=== PATIENT | female | born 1985 | race Caucasian/White ===

== ENCOUNTER 2017-06-13 06:30 | Day surgery (SDC) | payer BC ==
[2017-06-13] MEDS: Lactated Ringers 1,000 ML IV SCH ×4 (07:05→19:20)
[2017-06-13] MEDS ORDERED: Lidocaine 2% 5 ML SDV ONE (07:23)
[2017-06-13] MEDS ORDERED: fentaNYL 100 MCG/2 ML SDV ONE ×4 (07:23→15:03)
[2017-06-13] MEDS ORDERED: Midazolam 1 MG/ML 2 ML SDV ONE ×2 (07:23→14:14)
[2017-06-13] MEDS ORDERED: Propofol 200 MG/20 ML SDV ONE ×2 (07:23→14:12)
[2017-06-13] MEDS ORDERED: Ondansetron 4 MG/2 ML SDV ONE ×2 (07:23→14:08)
[2017-06-13] MEDS ORDERED: Lidocaine 1% with EPINEPHrine 1:100,000 20 ML MDV ONE (07:27)
[2017-06-13] MEDS ORDERED: Bupivacaine 0.25% 10 ML SDV ONE (07:27)
[2017-06-13] MEDS ORDERED: Neomycin/Polymyxin B Bladder Irrigation 1 ML Amp ONE ×2 (07:28→09:11)
[2017-06-13] MEDS ORDERED: Scopolamine 1.5 MG Transdermal Patch TRDERM PRN (07:30)
--- NOTE | 2017-06-13 07:30 | PCM.PREANE ---
Preanesthetic Assessment - Anesthesia/Transfusion/Family Hx Anesthesia History: Prior Anesthesia Without Reaction Family History of Anesthesia Reaction: Other (see below) Transfusion History: No Prior Transfusion(s) - Review of Systems General: No Symptoms Pulmonary: No Symptoms Cardiovascular: No Symptoms Gastrointestinal: No Symptoms Neurological: No Symptoms Other: Reports: None - Physical Assessment NPO Status Date: 06/12/17 NPO Status Time: 23:00 O2 Sat by Pulse Oximetry: 99 Respiratory Rate: 16 Vital Signs: Last Vital Signs Temp 36.8 C 06/13/17 06:52 Pulse 59 L 06/13/17 06:52 Resp 16 06/13/17 06:52 BP 99/60 06/13/17 06:52 Pulse Ox 99 06/13/17 06:52 Height: 1.65 m Weight: 61.689 kg ASA Class: 2 Mental Status: Alert & Oriented x3 Airway Class: Mallampati = 1 Dentition: Reports: Normal Dentition ROM/Head Extension: Full Lungs: Clear to Auscultation, Normal Respiratory Effort Cardiovascular: Regular Rate, Regular Rhythm - Lab Values: Laboratory Last Values WBC 5.06 K/uL (4.0-11.0) 06/13/17 07:02 RBC 4.26 M/uL (4.30-5.90) L 06/13/17 07:02 Hgb 13.3 g/dL (12.0-16.0) 06/13/17 07:02 Hct 37.8 % (36.0-46.0) 06/13/17 07:02 MCV 88.7 fL (80.0-98.0) 06/13/17 07:02 MCH 31.2 pg (27.0-32.0) 06/13/17 07:02 MCHC 35.2 g/dL (31.0-37.0) 06/13/17 07:02 RDW Std Deviation 42.0 fl (28.0-62.0) 06/13/17 07:02 RDW Coeff of Vicky 13 % (11.0-15.0) 06/13/17 07:02 Plt Count 216 K/uL (150-400) 06/13/17 07:02 MPV 10.30 fL (7.40-12.00) 06/13/17 07:02 Nucleated RBC % 0.0 /100WBC 06/13/17 07:02 Nucleated RBCs # 0 K/uL 06/13/17 07:02 - Allergies Allergies/Adverse Reactions: Allergies Allergy/AdvReac Type Severity Reaction Status Date / Time Iodinated Contrast- Oral and Allergy Hives Verified 06/09/17 08:52 IV Dye - Acknowledgements Anesthesia Type Planned: General Anesthesia Pt an Appropriate Candidate for the Planned Anesthesia: Yes Alternatives and Risks of Anesthesia Discussed w Pt/Guardian: Yes Pt/Guardian Understands and Agrees with Anesthesia Plan: Yes Additional Comments: hx of narcotic dependancy, used narcotics after back ingury. withdrawn from oxy with suboxone. No narcotic use now x 2 years. Will use as nuch non-narcotic analgesics as possible ( dex, iv aceta, toradol), and then supliment with narcotic until pain free. 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: , Other (See Below) Other OB/BYN History: ETOP x3 Musculoskeletal History: Reports: Back Pain, Chronic, Fracture Other Musculoskeletal History: fx spine Psychiatric History: Reports: Anxiety, Depression - Past Surgical History Head Surgeries/Procedures: Reports: None HEENT Surgical History: Reports: Tonsillectomy GI Surgical History: Reports: Appendectomy Female Surgical History: Reports: Breast Implant, Section - SUBSTANCE USE Smoking Status *Q: Former Smoker - HOME MEDS Home Medications: Home Meds Copper [Paragard T 380-A] 1 device VAG ONETIME 06/09/17 [History] Naproxen Sodium [Aleve] 2 tab PO ASDIRECTED PRN 06/09/17 [History] Spironolactone 50 mg PO DAILY 06/09/17 [History] Zolpidem [Ambien] 10 mg PO BEDTIME PRN 06/09/17 [History] - CURRENT (IN HOUSE) MEDS Current Meds: Current Medications Lactated Ringer's (Ringers, Lactated) 1,000 mls @ 125 mls/hr IV ASDIRECTED ALPA Last Admin: 06/13/17 07:05 Dose: 125 mls/hr Discontinued Medications Fentanyl (Sublimaze) Confirm Administered Dose 200 mcg .ROUTE .STK-MED ONE Stop: 06/13/17 07:24 Lidocaine (Xylocaine-Mpf 2%) Confirm Administered Dose 5 ml .ROUTE .STK-MED ONE Stop: 06/13/17 07:24 Midazolam HCl (Versed 1 Mg/Ml) Confirm Administered Dose 2 mg .ROUTE .STK-MED ONE Stop: 06/13/17 07:24 Ondansetron HCl (Zofran) Confirm Administered Dose 4 mg .ROUTE .STK-MED ONE Stop: 06/13/17 07:24 Propofol (Diprivan 20 Ml) Confirm Administered Dose 200 mg .ROUTE .STK-MED ONE Stop: 06/13/17 07:24
[2017-06-13] MEDS ORDERED: Acetaminophen 1,000 MG in Premix Bag 1 BAG IV ONE (07:31)
[2017-06-13] MEDS ORDERED: ceFAZolin 1 GM Vial ONE ×2 (08:01→14:38)
[2017-06-13] MEDS ORDERED: Sodium Chloride 0.9% 20 ML ONE (08:01)
[2017-06-13] MEDS ORDERED: Ketorolac 30 MG/ML SDV ONE (08:16)
[2017-06-13] MEDS ORDERED: ePHEDrine 50 MG/ML SDV ONE (08:19)
[2017-06-13] MEDS ORDERED: Octyl 2-Cyanoacrylate 1 Tube ONE (09:34)
[2017-06-13] MEDS ORDERED: Ketorolac 30 MG/ML SDV IVPUSH PRN (09:58)
[2017-06-13] MEDS ORDERED: Ketorolac 30 MG/ML SDV IVPUSH ONE (09:58)
[2017-06-13] MEDS ORDERED: Promethazine 25 MG/ML SDV IM PRN (09:58)
[2017-06-13] MEDS ORDERED: Ondansetron 4 MG/2 ML SDV IVPUSH PRN (09:58)
[2017-06-13] MEDS: fentaNYL 100 MCG/2 ML SDV IVPUSH PRN ×6 (10:04→15:52)
--- NOTE | 2017-06-13 10:08 | PCM.OPNOTE ---
- General Post-Op/Procedure Note Date of Surgery/Procedure: 06/13/17 Operative Procedure(s): posterior colporrhaphy, perineorrhaphy, TOVT Findings: 3rd degree Rectocele, enterocele between cervix and muscularis layer, hypermobile urethra Pre Op Diagnosis: 3rd degree rectocele, enterocele, stress incontinence Post-Op Diagnosis: Same Anesthesia Technique: General LMA Other Anesthesia Type: Local Primary Surgeon: Vonnie Guadarrama Secondary Surgeon: Eric Villalta High Scaler: Alban Ivory Pathology: Vaginal Mucosa Fluid Replacement, Intraop: 1,500 EBL in mLs: 100 Drain/Tube Comments:: Vaginal Packing Complications: None Known Condition: Good
--- NOTE | 2017-06-13 10:29 | PCM.POSTAN ---
POST ANESTHESIA ASSESSMENT - MENTAL STATUS Mental Status: Alert, Oriented - RESPIRATORY Respiratory Status: Respiratory Rate WNL, Airway Patent, O2 Saturation Stable - CARDIOVASCULAR CV Status: Pulse Rate WNL, Blood Pressure Stable - GASTROINTESTINAL GI Status: No Symptoms - POST OP HYDRATION Hydration Status: Adequate & Stable
[2017-06-13] MEDS: Acetaminophen/oxyCODONE 325-5 MG Tab PO PRN ×3 (11:20→21:50)
[2017-06-13] MEDS: Morphine 2 MG/ML Syringe IVPUSH PRN ×5 (12:05→23:38)
--- NOTE | 2017-06-13 12:20 | PCM.SN ---
- Free Text/Narrative Note: I was called due to patient saturating 3 pads. These were ice packs and so quantity was difficult to determine. At my direction the nursing staff has added an additional roll of packing and at this time, there is no active vaginal bleeding, pain is controlled after dose of Fentanyl vitals are stable. Will check H&H at 4 pm, hold ketorolac and nurses will notify me of further bleeding.
[2017-06-13] MEDS ORDERED: Succinylcholine/Normal Saline 200 MG/10 ML Syringe ONE (14:08)
[2017-06-13] MEDS ORDERED: Metoclopramide 10 MG/2 ML SDV ONE (14:08)
--- NOTE | 2017-06-13 14:10 | PCM.SURGPN ---
- General Info Date of Service: 06/13/17 POD#: 0 Functional Status: Reports: Pain Controlled (rates pain 5-6, vaginal. ) - Review of Systems HEENT: Reports: No Symptoms Gastrointestinal: Reports: No Symptoms Genitourinary: Reports: Other (nursing staff called, pad again saturated, 160 ml ) - Patient Data Vitals - Most Recent: Last Vital Signs Temp 37.1 C 06/13/17 10:53 Pulse 80 06/13/17 10:53 Resp 16 06/13/17 10:53 BP 118/77 06/13/17 10:53 Pulse Ox 100 06/13/17 10:53 Weight - Most Recent: 61.689 kg I&O - Last 24 Hours: Intake & Output 06/12/17 06/13/17 06/13/17 22:59 06:59 14:59 Intake Total 3350 Balance 3350 Lab Results Last 24 Hrs: Laboratory Results - last 24 hr 06/13/17 06/13/17 06/13/17 Range/Units 07:02 07:02 07:02 WBC 5.06 (4.0-11.0) K/uL RBC 4.26 L (4.30-5.90) M/uL Hgb 13.3 (12.0-16.0) g/dL Hct 37.8 (36.0-46.0) % MCV 88.7 (80.0-98.0) fL MCH 31.2 (27.0-32.0) pg MCHC 35.2 (31.0-37.0) g/dL RDW Std Deviation 42.0 (28.0-62.0) fl RDW Coeff of Vicky 13 (11.0-15.0) % Plt Count 216 (150-400) K/uL MPV 10.30 (7.40-12.00) fL Nucleated RBC % 0.0 /100WBC Nucleated RBCs # 0 K/uL Potassium 4.0 (3.5-5.1) mmol/L HCG, Qual NEGATIVE (NEG) Med Orders - Current: Current Medications Fentanyl (Sublimaze) 50 mcg IVPUSH Q5M PRN PRN Reason: Pain (severe 7-10) Stop: 06/14/17 08:17 Last Admin: 06/13/17 10:26 Dose: 50 mcg Lactated Ringer's (Ringers, Lactated) 1,000 mls @ 125 mls/hr IV ASDIRECTED ALPA Last Admin: 06/13/17 11:27 Dose: 125 mls/hr Morphine Sulfate (Morphine) 2 mg IVPUSH Q2H PRN PRN Reason: Pain (severe 7-10) Last Admin: 06/13/17 12:05 Dose: 2 mg Ondansetron HCl (Zofran) 4 mg IVPUSH Q6H PRN PRN Reason: Nausea/Vomiting Last Admin: 06/13/17 12:48 Dose: 4 mg Oxycodone/Acetaminophen (Percocet 325-5 Mg) 1 tab PO Q4H PRN PRN Reason: Pain (moderate 4-6) Last Admin: 06/13/17 11:20 Dose: 1 tab Promethazine HCl (Phenergan) 25 mg IM Q6H PRN PRN Reason: Nausea/Vomiting Scopolamine (Transderm-Scop) 1.5 mg TRDERM Q72H PRN PRN Reason: Nausea/Vomiting Last Admin: 06/13/17 07:40 Dose: 1.5 mg Discontinued Medications Bupivacaine HCl (Sensorcaine-Mpf 0.25%) Confirm Administered Dose 10 ml .ROUTE .STK-MED ONE Stop: 06/13/17 07:28 Cefazolin Sodium (Ancef) Confirm Administered Dose 1 gm .ROUTE .STK-MED ONE Stop: 06/13/17 08:02 Ephedrine Sulfate (Ephedrine Sulfate) Confirm Administered Dose 50 mg .ROUTE .STK-MED ONE Stop: 06/13/17 08:20 Fentanyl (Sublimaze) Confirm Administered Dose 200 mcg .ROUTE .STK-MED ONE Stop: 06/13/17 07:24 Fentanyl (Sublimaze) Confirm Administered Dose 100 mcg .ROUTE .STK-MED ONE Stop: 06/13/17 08:54 Acetaminophen 1,000 mg/ Premix 100 mls @ 400 mls/hr IV NOW ONE Stop: 06/13/17 07:45 Last Admin: 06/13/17 07:40 Dose: 400 mls/hr Sodium Chloride (Normal Saline) Confirm Administered Dose 20 mls @ as directed .ROUTE .STK-MED ONE Stop: 06/13/17 08:02 Ketorolac Tromethamine (Toradol) Confirm Administered Dose 30 mg .ROUTE .STK- MED ONE Stop: 06/13/17 08:17 Ketorolac Tromethamine (Toradol) 30 mg IVPUSH ONETIME ONE Stop: 06/13/17 09:59 Last Admin: 06/13/17 13:23 Dose: Not Given Ketorolac Tromethamine (Toradol) 30 mg IVPUSH Q6H PRN PRN Reason: Pain (severe 7-10) Stop: 06/18/17 09:59 Lidocaine (Xylocaine-Mpf 2%) Confirm Administered Dose 5 ml .ROUTE .STK-MED ONE Stop: 06/13/17 07:24 Lidocaine/Epinephrine (Xylocaine 1% With Epinephrine 1:100,000) Confirm Administered Dose 20 ml .ROUTE .STK-MED ONE Stop: 06/13/17 07:28 Midazolam HCl (Versed 1 Mg/Ml) Confirm Administered Dose 2 mg .ROUTE .STK-MED ONE Stop: 06/13/17 07:24 Neomycin/Polymyxin (Neosporin Gu Irrigant) Confirm Administered Dose 1 ml .ROUTE .STK-MED ONE Stop: 06/13/17 07:29 Neomycin/Polymyxin (Neosporin Gu Irrigant) Confirm Administered Dose 1 ml .ROUTE .STK-MED ONE Stop: 06/13/17 09:12 Octyl Cyanoacrylate (Dermabond Advance) Confirm Administered Dose 1 applic .ROUTE .STK-MED ONE Stop: 06/13/17 09:35 Ondansetron HCl (Zofran) Confirm Administered Dose 4 mg .ROUTE .STK-MED ONE Stop: 06/13/17 07:24 Propofol (Diprivan 20 Ml) Confirm Administered Dose 200 mg .ROUTE .STK-MED ONE Stop: 06/13/17 07:24 - Exam General: Alert, Oriented Physical Findings Comment:: Due to discomfort, I feel that an appropriate exam will require anesthesia, packing will be removed and bleeding assessed. - Problem List & Annotations (1) Rectocele SNOMED Code(s): 929772549 Code(s): N81.6 - RECTOCELE Status: Acute Current Visit: Yes - Problem List Review Problem List Initiated/Reviewed/Updated: Yes - My Orders Last 24 Hours: Active Orders 24 hr Category Date Time Status Patient Status [ADT] Routine ADT 06/13/17 09:59 Active Antiembolic Devices [RC] PER UNIT ROUTINE Care 06/13/17 10:00 Active Notify Provider Intake and Out [RC] ASDIRECTED Care 06/13/17 09:59 Active Notify Provider Vital Signs [RC] ASDIRECTED Care 06/13/17 09:59 Active Oxygen Therapy [RC] ASDIRECTED Care 06/13/17 09:59 Active RT Incentive Spirometry [RC] Q2HWA Care 06/13/17 09:59 Active Up With Assistance [RC] PER UNIT ROUTINE Care 06/13/17 09:59 Active Up ad Mirella [RC] PER UNIT ROUTINE Care 06/13/17 09:59 Active Urinary Catheter Removal [RC] Per Unit Routine Care 06/13/17 09:59 Active Vital Signs [RC] PER UNIT ROUTINE Care 06/13/17 09:59 Active Regular Diet [DIET] Diet 06/13/17 Lunch Active HEMOGLOBIN/HEMATOCRIT,HH [HEME] Routine Lab 06/13/17 14:01 Ordered HEMOGLOBIN/HEMATOCRIT,HH [HEME] Routine Lab 06/13/17 16:00 Ordered TYPE AND SCREEN [BBK] Routine Lab 06/13/17 14:01 Ordered Acetaminophen/oxyCODONE [Percocet 325-5 MG] Med 06/13/17 09:58 Active 1 tab PO Q4H PRN Lactated Ringers [Ringers, Lactated] 1,000 ml Med 06/13/17 06:30 Active IV ASDIRECTED Morphine Med 06/13/17 09:58 Active 2 mg IVPUSH Q2H PRN Ondansetron [Zofran] Med 06/13/17 09:58 Active 4 mg IVPUSH Q6H PRN Promethazine [Phenergan] Med 06/13/17 09:58 Active 25 mg IM Q6H PRN Scopolamine [Transderm-Scop] Med 06/13/17 07:30 Active 1.5 mg TRDERM Q72H PRN fentaNYL [Sublimaze] Med 06/13/17 08:13 Active 50 mcg IVPUSH Q5M PRN Pad Count [Peripad Count] [WOMSER] Routine Oth 06/13/17 12:22 Ordered Peripheral IV Discontinue [OM.PC] Routine Oth 06/13/17 09:59 Ordered Sequential Compression Device [OM.PC] Per Unit Routine Oth 06/13/17 09:59 Ordered Resuscitation Status Routine Resus Stat 06/13/17 09:58 Ordered Medication Orders Fentanyl (Sublimaze) 50 mcg IVPUSH Q5M PRN PRN Reason: Pain (severe 7-10) Stop: 06/14/17 08:17 Last Admin: 06/13/17 10:26 Dose: 50 mcg Admin: 06/13/17 10:19 Dose: 50 mcg Admin: 06/13/17 10:10 Dose: 50 mcg Admin: 06/13/17 10:04 Dose: 50 mcg Lactated Ringer's (Ringers, Lactated) 1,000 mls @ 125 mls/hr IV ASDIRECTED [facility] Last Admin: 06/13/17 11:27 Dose: 125 mls/hr Infusion: 06/13/17 11:27 Dose: 125 mls/hr Admin: 06/13/17 07:05 Dose: 125 mls/hr Morphine Sulfate (Morphine) 2 mg IVPUSH Q2H PRN PRN Reason: Pain (severe 7-10) Last Admin: 06/13/17 12:05 Dose: 2 mg Ondansetron HCl (Zofran) 4 mg IVPUSH Q6H PRN PRN Reason: Nausea/Vomiting Last Admin: 06/13/17 12:48 Dose: 4 mg Oxycodone/Acetaminophen (Percocet 325-5 Mg) 1 tab PO Q4H PRN PRN Reason: Pain (moderate 4-6) Last Admin: 06/13/17 11:20 Dose: 1 tab Promethazine HCl (Phenergan) 25 mg IM Q6H PRN PRN Reason: Nausea/Vomiting Scopolamine (Transderm-Scop) 1.5 mg TRDERM Q72H PRN PRN Reason: Nausea/Vomiting Last Admin: 06/13/17 07:40 Dose: 1.5 mg - Assessment Assessment (Free Text/Narrative):: POD0 after rectocele repair and TOVT, has saturated 3 pads, needs appropriate exam and confirmation of hemostasis, this is best accomplished in the OR with appropriate equipment and pain control. Patient understands and agrees. Will get H&H and type and screen.
--- NOTE | 2017-06-13 15:28 | OR ---
SURGEON: Vonnie Guadarrama M.D. DATE OF PROCEDURE: 06/13/2017 PREOPERATIVE DIAGNOSES: Stress urinary incontinence and symptomatic rectocele. BRIEF HISTORY: This is a 32-year-old female. She has documented stress incontinence. Cystometry showed normal bladder capacity. No significant bladder contractions. She was thoroughly counseled regarding options for stress incontinence including expectant management, pessaries, or surgical intervention, which could include a retropubic transobturator or a single-incision sling. She would like to proceed with a transobturator sling. She was thoroughly counseled and given written information regarding the transobturator sling including risk of urinary retention, voiding dysfunction, bleeding, infection, erosion, pain, injury to nerves, urethra, bladder or ureter, possibly requiring short-term catheterization, possibility of dyspareunia. Understanding these risks, she does desire to proceed with transobturator vaginal taping. Additionally, she has a symptomatic third-degree rectocele with difficulty passing stools requiring splinting. She has pelvic pressure and difficulty having intercourse. She would also like to have a perineorrhaphy at her request at the same time as the repair of the rectocele. She has a somewhat gaping perineum, but not severely so. She was thoroughly counseled including with the rectocele repair, risk of bleeding, infection, injury to bowel or sphincter, risk of dyspareunia, risk of recurrence. She was clearly counseled that the posterior perineorrhaphy may increase her risk of dyspareunia. She also understands that under no circumstance should she attempt a vaginal delivery. If she were to become again, she would require a . She clearly understands this and does desire to proceed and agrees with the plan of care. DESCRIPTION OF PROCEDURE: With the patient in dorsal lithotomy position, under adequate general LMA analgesia, the perineum and vagina were prepped with Zephiran due to a Betadine allergy. Appropriate time-out was held. Bimanual examination revealed a third- degree rectocele, mobile uterus, hypermobile urethra. After appropriate time- out was held with SCDs in place having received 1 g of Ancef IV and with the bladder having been drained, Allis clamps were placed at the 5 and 7 o'clock position of the perineum. Triangular incision was made into the perineum. The skin was removed. The hydrodissection was performed posteriorly. The posterior vaginal mucosa was incised with Metzenbaum scissors in the midline. The muscularis layer was dissected free of the overlying epithelial layer. There were an enterocele between the cervix and the muscularis layer. This was reduced and in a pursestring fashion the muscularis layer and the pericervical fascia were reattached and a 2nd pursestring layer was placed. The remaining muscularis layer was reapproximated using multiple interrupted mattress sutures of 2-0 Polysorb. The vaginal mucosa was trimmed and closed with a running locked suture of 0 Polysorb to the perineum where the deep perineal sutures were placed. Following this, the skin was reapproximated using 3-0 plain. With this being completed, the weighted speculum was placed posteriorly and the bladder was again drained. The landmarks were marked at the notch at the level of the clitoris laterally inferior to the adductor longus muscle. A 1% lidocaine with epinephrine diluted 1:1 with Marcaine 0.25%, diluted 1:1 with saline was injected beneath the urethra laterally towards the obturator foramen in the subcutaneous area at the site of the markings. A #11 blade scalpel was used to make incisions at the groin markings and a #15 blade scalpel was utilized to incise starting 1 cm cephalad from the urethral meatus through the vaginal epithelium. Metzenbaum scissors were then used to dissect laterally towards the pubic ramus on the right and the left. The transobturator needle was then passed through the skin incision turning medially through the obturator foramen meeting my finger, which had been placed through the vaginal incision and bringing the tip to the suburethral area. The tape was then attached and pulled through cut and tagged. This was repeated on the opposite side without any difficulty. The tape was positioned appropriately vaginally. The bladder was filled with antibiotic solution and the tape was instilled with antibiotic solution as well. The tape was appropriately positioned. The sheath of the tape was removed. Test of Crede maneuver was performed and there was no leakage. The catheter was easily passed through the urethral meatus without any resistance. Therefore, the tails of the tape were trimmed. The skin was closed with skin glue. The vaginal mucosa was closed with a running locked suture of 3- 0 Polysorb. The vagina was packed. The catheter was left in place and final sponge, needle, and instrument counts were reported as correct. There were no known complications. The patient was transferred to recovery in good condition. ROME MONTOYA /[id number]
--- NOTE | 2017-06-13 15:34 | PCM.OPNOTE ---
- General Post-Op/Procedure Note Date of Surgery/Procedure: 06/13/17 Operative Procedure(s): Evacuation of hematoma and establishment of hemostasis Findings: Left posterior vaginal hematoma Pre Op Diagnosis: Postop bleeding Post-Op Diagnosis: same Anesthesia Technique: General LMA Primary Surgeon: Vonnie Guadarrama Plate Preparer: Alban Ivory Fluid Replacement, Intraop: 1,350 EBL in mLs: 50 Drain/Tube Comments:: Vaginal packing Complications: None Known Condition: Good Free Text/Narrative:: Intake & Output 06/13/17 06/13/17 06/13/17 06:59 14:59 22:59 Intake Total 3350 1000 Output Total 225 Balance 3350 775
--- NOTE | 2017-06-13 16:04 | PCM.POSTAN ---
POST ANESTHESIA ASSESSMENT - MENTAL STATUS Mental Status: Alert, Oriented - VITAL SIGNS Pulse Rate: 80 SaO2: 99 Resp Rate: 20 Blood Pressure: 109/62 Temperature: 37 C - RESPIRATORY Respiratory Status: Respiratory Rate WNL, Airway Patent, O2 Saturation Stable - CARDIOVASCULAR CV Status: Pulse Rate WNL, Blood Pressure Stable - GASTROINTESTINAL GI Status: No Symptoms - PAIN Pain Score: 3 - POST OP HYDRATION Hydration Status: Adequate & Stable - OBSERVATIONS Free Text/Narrative:: Doing well, some discomfort, fentanyl x 2. Will discharge in good condition
[2017-06-13] MEDS: ceFAZolin 2 GM in Premix Bag 1 BAG IV SCH (20:15)
--- NOTE | 2017-06-13 21:49 | OR ---
SURGEON: Vonnie Guadarrama M.D. DATE OF PROCEDURE: 06/13/2017 PREOPERATIVE DIAGNOSIS: Vaginal bleeding after rectocele repair. POSTOPERATIVE DIAGNOSIS: Vaginal bleeding after rectocele repair. PROCEDURE: Evacuation of hematoma, establishment of hemostasis. MASK FORMER: Alban Ivory MS-3. ANESTHESIA: General endotracheal. ESTIMATED BLOOD LOSS: 50 mL. FINDINGS: There was a 3 cm hematoma to the left of the apex of the vaginal incision. The hematoma was evacuated. There was minimal active bleeding. There was no discrete area of bleeding. Any areas of bleeding that were noted were controlled with [id number] sutures of 2-0 Polysorb, two of which were placed. The previous incision at the beginning of the case had been opened for complete visualization of the muscularis layer. Once the sutures have been removed, the edges were retracted with Allis clamps and careful inspection was performed over the entire muscularis layer, but particularly paying attention to the left apical portion. Again, 2 [id number] sutures were placed. This accomplished hemostasis. The muscularis layer was then reapproximated using a running lock suture of 2-0 Polysorb to the introitus. This was then taken out onto the perineum, the deep perineal tissue was reapproximated with the same suture and tied the 3-0 plain was then utilized to reapproximate the more superficial perineal tissue and subcutaneous tissue. The vagina was then again inspected, it appeared completely hemostatic and 2 rolls of vaginal packing instilled with K-Y jelly were utilized for vaginal packing. Final sponge, needle, and instrument counts were reported as correct. There were no complications of this procedure, however, complication in general would be vaginal hematoma from prior procedure. DISPOSITION: Stable to recovery. ROME / LINDSAY /[id number]
[2017-06-14] MEDS: Acetaminophen/oxyCODONE 325-5 MG Tab PO PRN ×4 (01:56→15:13)
[2017-06-14] MEDS: ceFAZolin 2 GM in Premix Bag 1 BAG IV SCH ×3 (01:57→14:14)
[2017-06-14] MEDS: Morphine 2 MG/ML Syringe IVPUSH PRN ×3 (02:15→06:48)
--- NOTE | 2017-06-14 08:01 | PCM.PN ---
- General Info Date of Service: 06/14/17 Admission Dx/Problem (Free Text): Postop perineorraphy, colporraphy, TOVT - Patient Data Vitals - Most Recent: Last Vital Signs Temp 37.2 C 06/14/17 06:59 Pulse 76 06/14/17 04:20 Resp 14 06/14/17 04:20 BP 93/51 L 06/14/17 04:20 Pulse Ox 98 06/14/17 04:20 Weight - Most Recent: 61.689 kg I&O - Last 24 Hours: Intake & Output 06/13/17 06/14/17 06/14/17 22:59 06:59 14:59 Intake Total 4000 1000 Output Total 3325 1675 Balance 675 -675 Lab Results Last 24 Hours: Laboratory Results - last 24 hr 06/13/17 06/13/17 06/13/17 Range/Units 14:13 14:13 17:42 WBC (4.0-11.0) K/uL RBC (4.30-5.90) M/uL Hgb 10.9 L (12.0-16.0) g/dL Hct 31.7 L (36.0-46.0) % MCV (80.0-98.0) fL MCH (27.0-32.0) pg MCHC (31.0-37.0) g/dL RDW Std Deviation (28.0-62.0) fl RDW Coeff of Vicky (11.0-15.0) % Plt Count (150-400) K/uL MPV (7.40-12.00) fL Nucleated RBC % /100WBC Nucleated RBCs # K/uL INR 1.10 (0.86-1.11) Blood Type O NEGATIVE Antibody Screen NEGATIVE 06/13/17 06/14/17 Range/Units 17:42 04:26 WBC 11.96 H 9.80 (4.0-11.0) K/uL RBC 3.42 L 3.47 L (4.30-5.90) M/uL Hgb 10.6 L 10.7 L (12.0-16.0) g/dL Hct 30.7 L 31.5 L (36.0-46.0) % MCV 89.8 90.8 (80.0-98.0) fL MCH 31.0 30.8 (27.0-32.0) pg MCHC 34.5 34.0 (31.0-37.0) g/dL RDW Std Deviation 42.8 43.9 (28.0-62.0) fl RDW Coeff of Vicky 13 13 (11.0-15.0) % Plt Count 200 201 (150-400) K/uL MPV 10.10 10.40 (7.40-12.00) fL Nucleated RBC % 0.0 0.0 /100WBC Nucleated RBCs # 0 0 K/uL INR (0.86-1.11) Blood Type Antibody Screen Med Orders - Current: Current Medications Fentanyl (Sublimaze) 50 mcg IVPUSH Q5M PRN PRN Reason: Pain (severe 7-10) Stop: 06/14/17 08:17 Last Admin: 06/13/17 10:26 Dose: 50 mcg Lactated Ringer's (Ringers, Lactated) 1,000 mls @ 125 mls/hr IV ASDIRECTED [facility] Last Admin: 06/13/17 19:20 Dose: 125 mls/hr Cefazolin Sodium/Dextrose 2 gm (/ Premix) 50 mls @ 100 mls/hr IV Q6H [facility] Stop: 06/14/17 20:00 Last Admin: 06/14/17 01:57 Dose: 100 mls/hr Morphine Sulfate (Morphine) 2 mg IVPUSH Q2H PRN PRN Reason: Pain (severe 7-10) Last Admin: 06/14/17 06:48 Dose: 2 mg Ondansetron HCl (Zofran) 4 mg IVPUSH Q6H PRN PRN Reason: Nausea/Vomiting Last Admin: 06/13/17 12:48 Dose: 4 mg Oxycodone/Acetaminophen (Percocet 325-5 Mg) 1 tab PO Q4H PRN PRN Reason: Pain (moderate 4-6) Last Admin: 06/13/17 17:43 Dose: 1 tab Oxycodone/Acetaminophen (Percocet 325-5 Mg) 2 tab PO Q4H PRN PRN Reason: Pain (moderate 4-6) Last Admin: 06/14/17 06:49 Dose: 2 tab Promethazine HCl (Phenergan) 25 mg IM Q6H PRN PRN Reason: Nausea/Vomiting Scopolamine (Transderm-Scop) 1.5 mg TRDERM Q72H PRN PRN Reason: Nausea/Vomiting Last Admin: 06/13/17 07:40 Dose: 1.5 mg Zaleplon (Sonata) 10 mg PO BEDTIME PRN PRN Reason: Insomnia Last Admin: 06/13/17 23:09 Dose: 10 mg Discontinued Medications Bupivacaine HCl (Sensorcaine-Mpf 0.25%) Confirm Administered Dose 10 ml .ROUTE .STK-MED ONE Stop: 06/13/17 07:28 Cefazolin Sodium (Ancef) Confirm Administered Dose 1 gm .ROUTE .STK-MED ONE Stop: 06/13/17 08:02 Cefazolin Sodium (Ancef) Confirm Administered Dose 1 gm .ROUTE .STK-MED ONE Stop: 06/13/17 14:39 Ephedrine Sulfate (Ephedrine Sulfate) Confirm Administered Dose 50 mg .ROUTE .STK-MED ONE Stop: 06/13/17 08:20 Fentanyl (Sublimaze) Confirm Administered Dose 200 mcg .ROUTE .STK-MED ONE Stop: 06/13/17 07:24 Fentanyl (Sublimaze) Confirm Administered Dose 100 mcg .ROUTE .STK-MED ONE Stop: 06/13/17 08:54 Fentanyl (Sublimaze) Confirm Administered Dose 100 mcg .ROUTE .STK-MED ONE Stop: 06/13/17 14:14 Fentanyl (Sublimaze) Confirm Administered Dose 100 mcg .ROUTE .STK-MED ONE Stop: 06/13/17 15:04 Fentanyl (Sublimaze) 50 mcg IVPUSH Q5M PRN PRN Reason: Pain Last Admin: 06/13/17 15:52 Dose: 50 mcg Glycopyrrolate () Confirm Administered Dose 1 mg .ROUTE .STK-MED ONE Stop: 06/13/17 14:09 Acetaminophen 1,000 mg/ Premix 100 mls @ 400 mls/hr IV NOW ONE Stop: 06/13/17 07:45 Last Admin: 06/13/17 07:40 Dose: 400 mls/hr Sodium Chloride (Normal Saline) Confirm Administered Dose 20 mls @ as directed .ROUTE .STK-MED ONE Stop: 06/13/17 08:02 Ketorolac Tromethamine (Toradol) Confirm Administered Dose 30 mg .ROUTE .STK- MED ONE Stop: 06/13/17 08:17 Ketorolac Tromethamine (Toradol) 30 mg IVPUSH ONETIME ONE Stop: 06/13/17 09:59 Last Admin: 06/13/17 13:23 Dose: Not Given Ketorolac Tromethamine (Toradol) 30 mg IVPUSH Q6H PRN PRN Reason: Pain (severe 7-10) Stop: 06/18/17 09:59 Lidocaine (Xylocaine-Mpf 2%) Confirm Administered Dose 5 ml .ROUTE .STK-MED ONE Stop: 06/13/17 07:24 Lidocaine HCl (Xylocaine-Mpf 1%) Confirm Administered Dose 5 ml .ROUTE .STK-MED ONE Stop: 06/13/17 15:18 Lidocaine/Epinephrine (Xylocaine 1% With Epinephrine 1:100,000) Confirm Administered Dose 20 ml .ROUTE .STK-MED ONE Stop: 06/13/17 07:28 Metoclopramide HCl (Reglan) Confirm Administered Dose 10 mg .ROUTE .STK-MED ONE Stop: 06/13/17 14:09 Midazolam HCl (Versed 1 Mg/Ml) Confirm Administered Dose 2 mg .ROUTE .STK-MED ONE Stop: 06/13/17 07:24 Midazolam HCl (Versed 1 Mg/Ml) Confirm Administered Dose 2 mg .ROUTE .STK-MED ONE Stop: 06/13/17 14:15 Neomycin/Polymyxin (Neosporin Gu Irrigant) Confirm Administered Dose 1 ml .ROUTE .STK-MED ONE Stop: 06/13/17 07:29 Neomycin/Polymyxin (Neosporin Gu Irrigant) Confirm Administered Dose 1 ml .ROUTE .STK-MED ONE Stop: 06/13/17 09:12 Octyl Cyanoacrylate (Dermabond Advance) Confirm Administered Dose 1 applic .ROUTE .STK-MED ONE Stop: 06/13/17 09:35 Ondansetron HCl (Zofran) Confirm Administered Dose 4 mg .ROUTE .STK-MED ONE Stop: 06/13/17 07:24 Ondansetron HCl (Zofran) Confirm Administered Dose 4 mg .ROUTE .STK-MED ONE Stop: 06/13/17 14:09 Propofol (Diprivan 20 Ml) Confirm Administered Dose 200 mg .ROUTE .STK-MED ONE Stop: 09/19/17 07:24 Propofol (Diprivan 20 Ml) Confirm Administered Dose 400 mg .ROUTE .STK-MED ONE Stop: 06/13/17 14:13 Succinylcholine Chloride (Succinylcholine In Ns Pf) Confirm Administered Dose 200 mg .ROUTE .STK-MED ONE Stop: 06/13/17 14:09
--- NOTE | 2017-06-14 08:12 | PCM.PN ---
- General Info Date of Service: 06/14/17 Functional Status: Reports: Tolerating Diet, Ambulating, Urinating. Denies: Pain Controlled (has been using morphine and Percocet through the night, she now has improved pain control. Reviewed history of high dose narcotic use in the past, making narcotics less effective for her. ) - Review of Systems General: Reports: Fever (one temp over 38.0) HEENT: Reports: No Symptoms Pulmonary: Reports: No Symptoms Cardiovascular: Reports: No Symptoms Gastrointestinal: Reports: No Symptoms Genitourinary: Reports: No Symptoms Musculoskeletal: Reports: No Symptoms Skin: Reports: No Symptoms Neurological: Reports: No Symptoms Psychiatric: Reports: No Symptoms - Patient Data Vitals - Most Recent: Last Vital Signs Temp 37.2 C 06/14/17 06:59 Pulse 76 06/14/17 04:20 Resp 14 06/14/17 04:20 BP 93/51 L 06/14/17 04:20 Pulse Ox 98 06/14/17 04:20 Weight - Most Recent: 61.689 kg I&O - Last 24 Hours: Intake & Output 06/13/17 06/14/17 06/14/17 22:59 06:59 14:59 Intake Total 4000 1000 Output Total 3325 1675 Balance 675 -675 Lab Results Last 24 Hours: Laboratory Results - last 24 hr 06/13/17 06/13/17 06/13/17 Range/Units 14:13 14:13 17:42 WBC (4.0-11.0) K/uL RBC (4.30-5.90) M/uL Hgb 10.9 L (12.0-16.0) g/dL Hct 31.7 L (36.0-46.0) % MCV (80.0-98.0) fL MCH (27.0-32.0) pg MCHC (31.0-37.0) g/dL RDW Std Deviation (28.0-62.0) fl RDW Coeff of Vicky (11.0-15.0) % Plt Count (150-400) K/uL MPV (7.40-12.00) fL Nucleated RBC % /100WBC Nucleated RBCs # K/uL INR 1.10 (0.86-1.11) Blood Type O NEGATIVE Antibody Screen NEGATIVE 06/13/17 06/14/17 Range/Units 17:42 04:26 WBC 11.96 H 9.80 (4.0-11.0) K/uL RBC 3.42 L 3.47 L (4.30-5.90) M/uL Hgb 10.6 L 10.7 L (12.0-16.0) g/dL Hct 30.7 L 31.5 L (36.0-46.0) % MCV 89.8 90.8 (80.0-98.0) fL MCH 31.0 30.8 (27.0-32.0) pg MCHC 34.5 34.0 (31.0-37.0) g/dL RDW Std Deviation 42.8 43.9 (28.0-62.0) fl RDW Coeff of Vicky 13 13 (11.0-15.0) % Plt Count 200 201 (150-400) K/uL MPV 10.10 10.40 (7.40-12.00) fL Nucleated RBC % 0.0 0.0 /100WBC Nucleated RBCs # 0 0 K/uL INR (0.86-1.11) Blood Type Antibody Screen Med Orders - Current: Current Medications Fentanyl (Sublimaze) 50 mcg IVPUSH Q5M PRN PRN Reason: Pain (severe 7-10) Stop: 06/14/17 08:17 Last Admin: 06/13/17 10:26 Dose: 50 mcg Lactated Ringer's (Ringers, Lactated) 1,000 mls @ 125 mls/hr IV ASDIRECTED [facility] Last Admin: 06/13/17 19:20 Dose: 125 mls/hr Cefazolin Sodium/Dextrose 2 gm (/ Premix) 50 mls @ 100 mls/hr IV Q6H [facility] Stop: 06/14/17 20:00 Last Admin: 06/14/17 01:57 Dose: 100 mls/hr Ketorolac Tromethamine (Toradol) 30 mg IVPUSH Q6H [facility] Stop: 06/19/17 08:05 Oxycodone/Acetaminophen (Percocet 325-5 Mg) 2 tab PO Q4H PRN PRN Reason: Pain (moderate 4-6) Last Admin: 06/14/17 06:49 Dose: 2 tab Scopolamine (Transderm-Scop) 1.5 mg TRDERM Q72H PRN PRN Reason: Nausea/Vomiting Last Admin: 06/13/17 07:40 Dose: 1.5 mg Zaleplon (Sonata) 10 mg PO BEDTIME PRN PRN Reason: Insomnia Last Admin: 06/13/17 23:09 Dose: 10 mg Discontinued Medications Bupivacaine HCl (Sensorcaine-Mpf 0.25%) Confirm Administered Dose 10 ml .ROUTE .STK-MED ONE Stop: 06/13/17 07:28 Cefazolin Sodium (Ancef) Confirm Administered Dose 1 gm .ROUTE .STK-MED ONE Stop: 06/13/17 08:02 Cefazolin Sodium (Ancef) Confirm Administered Dose 1 gm .ROUTE .STK-MED ONE Stop: 06/13/17 14:39 Ephedrine Sulfate (Ephedrine Sulfate) Confirm Administered Dose 50 mg .ROUTE .STK-MED ONE Stop: 06/13/17 08:20 Fentanyl (Sublimaze) Confirm Administered Dose 200 mcg .ROUTE .STK-MED ONE Stop: 06/13/17 07:24 Fentanyl (Sublimaze) Confirm Administered Dose 100 mcg .ROUTE .STK-MED ONE Stop: 06/13/17 08:54 Fentanyl (Sublimaze) Confirm Administered Dose 100 mcg .ROUTE .STK-MED ONE Stop: 06/13/17 14:14 Fentanyl (Sublimaze) Confirm Administered Dose 100 mcg .ROUTE .STK-MED ONE Stop: 06/13/17 15:04 Fentanyl (Sublimaze) 50 mcg IVPUSH Q5M PRN PRN Reason: Pain Last Admin: 06/13/17 15:52 Dose: 50 mcg Glycopyrrolate () Confirm Administered Dose 1 mg .ROUTE .STK-MED ONE Stop: 06/13/17 14:09 Acetaminophen 1,000 mg/ Premix 100 mls @ 400 mls/hr IV NOW ONE Stop: 06/13/17 07:45 Last Admin: 06/13/17 07:40 Dose: 400 mls/hr Sodium Chloride (Normal Saline) Confirm Administered Dose 20 mls @ as directed .ROUTE .STK-MED ONE Stop: 06/13/17 08:02 Ketorolac Tromethamine (Toradol) Confirm Administered Dose 30 mg .ROUTE .STK- MED ONE Stop: 06/13/17 08:17 Ketorolac Tromethamine (Toradol) 30 mg IVPUSH ONETIME ONE Stop: 06/13/17 09:59 Last Admin: 06/13/17 13:23 Dose: Not Given Ketorolac Tromethamine (Toradol) 30 mg IVPUSH Q6H PRN PRN Reason: Pain (severe 7-10) Stop: 06/18/17 09:59 Lidocaine (Xylocaine-Mpf 2%) Confirm Administered Dose 5 ml .ROUTE .STK-MED ONE Stop: 06/13/17 07:24 Lidocaine HCl (Xylocaine-Mpf 1%) Confirm Administered Dose 5 ml .ROUTE .STK-MED ONE Stop: 06/13/17 15:18 Lidocaine/Epinephrine (Xylocaine 1% With Epinephrine 1:100,000) Confirm Administered Dose 20 ml .ROUTE .STK-MED ONE Stop: 06/13/17 07:28 Metoclopramide HCl (Reglan) Confirm Administered Dose 10 mg .ROUTE .STK-MED ONE Stop: 06/13/17 14:09 Midazolam HCl (Versed 1 Mg/Ml) Confirm Administered Dose 2 mg .ROUTE .STK-MED ONE Stop: 06/13/17 07:24 Midazolam HCl (Versed 1 Mg/Ml) Confirm Administered Dose 2 mg .ROUTE .STK-MED ONE Stop: 06/13/17 14:15 Morphine Sulfate (Morphine) 2 mg IVPUSH Q2H PRN PRN Reason: Pain (severe 7-10) Last Admin: 06/14/17 06:48 Dose: 2 mg Neomycin/Polymyxin (Neosporin Gu Irrigant) Confirm Administered Dose 1 ml .ROUTE .STK-MED ONE Stop: 06/13/17 07:29 Neomycin/Polymyxin (Neosporin Gu Irrigant) Confirm Administered Dose 1 ml .ROUTE .STK-MED ONE Stop: 06/13/17 09:12 Octyl Cyanoacrylate (Dermabond Advance) Confirm Administered Dose 1 applic .ROUTE .STK-MED ONE Stop: 06/13/17 09:35 Ondansetron HCl (Zofran) Confirm Administered Dose 4 mg .ROUTE .STK-MED ONE Stop: 06/13/17 07:24 Ondansetron HCl (Zofran) 4 mg IVPUSH Q6H PRN PRN Reason: Nausea/Vomiting Last Admin: 06/13/17 12:48 Dose: 4 mg Ondansetron HCl (Zofran) Confirm Administered Dose 4 mg .ROUTE .STK-MED ONE Stop: 06/13/17 14:09 Oxycodone/Acetaminophen (Percocet 325-5 Mg) 1 tab PO Q4H PRN PRN Reason: Pain (moderate 4-6) Last Admin: 06/13/17 17:43 Dose: 1 tab Promethazine HCl (Phenergan) 25 mg IM Q6H PRN PRN Reason: Nausea/Vomiting Propofol (Diprivan 20 Ml) Confirm Administered Dose 200 mg .ROUTE .STK-MED ONE Stop: 06/13/17 07:24 Propofol (Diprivan 20 Ml) Confirm Administered Dose 400 mg .ROUTE .STK-MED ONE Stop: 06/13/17 14:13 Succinylcholine Chloride (Succinylcholine In Ns Pf) Confirm Administered Dose 200 mg .ROUTE .STK-MED ONE Stop: 06/13/17 14:09 - Exam General: Alert, Oriented HEENT: Pupils Equal, Pupils Reactive, EOMI, Mucous Membr. Moist/[place] Lungs: Clear to Auscultation, Normal Respiratory Effort Cardiovascular: Regular Rate, Regular Rhythm GI/Abdominal Exam: Normal Bowel Sounds, Soft, Non-Tender, No Distention, No Mass (Female) Exam: Normal External Exam (vaginal packing removed, scant spotting ), Normal Speculum Exam, Normal Bimanual Exam Psy/Mental Status: Alert, Normal Affect, Normal Mood - Problem List & Annotations (1) Rectocele SNOMED Code(s): 201424529 Code(s): N81.6 - RECTOCELE Status: Acute Current Visit: Yes - Problem List Review Problem List Initiated/Reviewed/Updated: Yes - My Orders Last 24 Hours: My Active Orders 06/13/17 09:59 Oxygen Therapy [RC] ASDIRECTED Up With Assistance [RC] PER UNIT ROUTINE Up ad Mirella [RC] PER UNIT ROUTINE Urinary Catheter Removal [RC] Per Unit Routine Sequential Compression Device [OM.PC] Per Unit Routine 06/13/17 10:00 Antiembolic Devices [RC] PER UNIT ROUTINE 06/13/17 12:22 Pad Count [Peripad Count] [WOMSER] Routine 06/14/17 08:15 Ketorolac [Toradol] 30 mg IVPUSH Q6H - Assessment Assessment:: Had single elevated temperature last night, antibiotics were start WBC is normal this am, she is afebrile. If continued afebrile may discharge to home with continued oral antibiotic coverage. Packing removed, dry, hemoglobin stable, will do voiding trial today, may use Toradol preferentially for pain as there is no further bleeding.
[2017-06-14 08:23] VITALS: BP 102/60
[2017-06-14] MEDS: Ketorolac 30 MG/ML SDV IVPUSH SCH ×2 (08:48→14:13)
--- NOTE | 2017-06-14 09:06 | PCM48HPAN ---
Post Anesthesia Note - EVALUATION WITHIN 48HRS OF ANESTHETIC Vital Signs in Normal Range: Yes Patient Participated in Evaluation: Yes Respiratory Function Stable: Yes Airway Patent: Yes Cardiovascular Function Stable: Yes Hydration Status Stable: Yes Pain Control Satisfactory: Yes Nausea and Vomiting Control Satisfactory: Yes Mental Status Recovered: Yes
--- NOTE | 2017-06-14 13:07 | PCM.SN ---
- Free Text/Narrative Note: Tolerating diet well, scant discharge since packing was removed, painis now well controlled, afebrile. Discussed discharge instruction, alternate Percocet and Motrin for pain control, may be discharged this afternoon. Discharge instructions reviewed. Will complete antibiotic course orally.
== END 2017-06-14 17:05 | disposition home or self-care (01) ==
LOC: MW.SDS 06:30 → MW.OB 09:59 → MW.SDS 06-14 17:05
PROVIDERS: ATTEND Obstetrics & Gynecology
PROC: 0JQC0ZZ Repair Pelvic Region Subcutaneous Tissue and Fascia, Open Approach (ICD-10-PCS; principal; 2017-06-13)
PROC: 0U9G0ZZ Drainage of Vagina, Open Approach (ICD-10-PCS; 2017-06-13)
DX: N81.6 Rectocele (principal); N93.9 Abnormal uterine and vaginal bleeding, unspecified; G47.00 Insomnia, unspecified; Z79.899 Other long term (current) drug therapy; Z90.49 Acquired absence of other specified parts of digestive tract; Z90.89 Acquired absence of other organs; Z98.890 Other specified postprocedural states
CPT/HCPCS: 36415; 45560; 57023; 84132; 84703; 85014; 85018; 85027; 85610; 86850; 86900; 86901; 88304; A9270; C1771; J0690; J1885; J2250; J2270; J2405; J2765; J3010; J7120; 00940; 00942; J2704